=== PATIENT | female | born 1950 ===

== ENCOUNTER 2022-11-14 09:07 | Emergency (ER) | payer OTHER ==
[~2022-11-14] VITALS: Ht 142.2 cm; Wt 67.1 kg
[2022-11-14] MEDS ORDERED: VALSARTAN-HCTZ1 EAC4 PO (09:20)
[2022-11-14] MEDS ORDERED: ATORVASTATIN CA10 MG PO (09:20)
[2022-11-14] MEDS ORDERED: METFORMIN HCL750 MG PO (09:21)
[2022-11-14] MEDS ORDERED: SYNTHROID100 MCG PO (09:21)
[2022-11-14] MEDS ORDERED: MONTELUKAST SOD10 MG PO (09:21)
[2022-11-14] MEDS ORDERED: AMLODIPINE BESYL5 MG PO (09:21)
== END 2022-11-14 12:08 ==
LOC: ER 09:07
DX: M25.512 Pain in left shoulder (principal)

== ENCOUNTER 2025-02-06 07:06 | Outpatient (CLI) | payer OTHER ==
[~2025-02-06 07:06] MED LIST: AMLODIPINE BESYL5 MG PO; ATORVASTATIN CA10 MG PO; METFORMIN HCL750 MG PO; MONTELUKAST SOD10 MG PO; SYNTHROID100 MCG PO; VALSARTAN-HCTZ1 EAC4 PO
== END 2025-02-06 07:09 | disposition home or self-care (01) ==
LOC: TOM 07:06
PROVIDERS: ATTEND Internal Medicine Gastroenterology
DX: K56.5 Intestinal adhesions [bands] with obstruction (postinfection) (principal); R19.5 Other fecal abnormalities